=== PATIENT | male | born 1955 | race Caucasian/White ===

== ENCOUNTER → 2021-12-25 | Day surgery (SDC) | payer MEDICARE ==
[2021-12-24 09:00] VITALS: BMI 34.2
[~2021-12-25] MED LIST: ALPRAZolam 0.25 MG TAB PO PRN; ALPRAZolam 0.5 MG TAB PO PRN; ASPIRIN 325 MG TAB PO STA; ASPIRIN 81 MG PO SCH; ATORVASTATIN 80 MG TAB PO STA; HEPARIN SODIUM 1,000 UN/ML (10ML VL) ONE; HEPARIN SODIUM,PORCINE 10,000 UNIT in SODIUM CHLORIDE 0.9% 1,000 ML IRRIGATION PRN; HEPARIN SODIUM,PORCINE 2,500 UNIT in SODIUM CHLORIDE 0.9% 250 ML IRRIGATION PRN; IOPAMIDOL-370 125ML BTL INJ ONE; LIDOCAINE 1% INJ 10MG/ML (20 ML MDV) ONE; LIDOCAINE 1% INJ 10MG/ML (20 ML MDV) SQ ONE; LISINOPRIL-HCTZ 10-12.5 MG 1 EACH TAB PO SCH; MIDAZOLAM 2 MG/2 ML VIAL IV ONE; MONTELUKAST 10 MG TAB PO SCH; NITROGLYCERIN SL TABS 0.4 MG TAB SUBLINGUAL PRN; RX INFO: IV CONTRAST WAS GIVEN 1 EACH MISC MISCELLANE PRN; SODIUM CHLORIDE 0.9% 1,000 ML IV SCH; SODIUM CHLORIDE 0.9% 1,000 ML in EMPTY BAG 1 BAG IV SCH; TAMSULOSIN 0.4 MG CAP.ER.24H PO SCH; VERAPAMIL 2.5 MG/ML 2 ML AMP ONE; VERAPAMIL SYRINGE (5 MG/10 ML) INTRAARTER ONE; fentaNYL (PF) 50 MCG/ML 2 ML AMP IV ONE; fentaNYL (PF) 50 MCG/ML 2 ML AMP ONE
[2021-12-25 06:40] VITALS: RESP 16; TEMP 98.2
[2021-12-25 06:46] LABS: African American GFR (CKD) >90 (>60 ml/min/1.73 sqM); Anion Gap 9 mmol/L; Blood Urea Nitrogen 20 mg/dL (9-20); Calcium 9.3 mg/dL (8.4-10.2); Carbon Dioxide 25 mmol/L (22-30); Chloride 105 mmol/L (98-107); Glucose 113 mg/dL (74-99); Non-African American GFR(CKD) 86 (>60 ml/min/1.73 sqM); Potassium 4.2 mmol/L (3.5-5.1); Sodium 139 mmol/L (137-145)
[2021-12-25 06:50] LABS: Basophils # (A) 0.1 k/uL (0-0.2); Basophils % (A) 1 %; Eosinophils # (A) 0.2 k/uL (0-0.7); Eosinophils % (A) 2 %; HCT 45.5 % (39.0-53.0); HGB 14.9 gm/dL (13.0-17.5); Lymphocytes # (A) 1.8 k/uL (1.0-4.8); Lymphocytes % (A) 24 %; MCHC 32.9 g/dL (31.0-37.0); MCV 88.3 fL (80.0-100.0); Mean Platelet Volume 6.9; Monocytes # (A) 0.5 k/uL (0-1.0); Monocytes % (A) 7 %; Neutrophils # (A) 4.6 k/uL (1.3-7.7); Neutrophils % (A) 63 %; Platelet Count 206 k/uL (150-450); RBC 5.15 m/uL (4.30-5.90); RDW 13.3 % (11.5-15.5); WBC 7.4 k/uL (3.8-10.6)
--- NOTE | 2021-12-25 08:02 | P.CARDCATH ---
Date of Procedure: 12/25/21 Description of Procedure: Cardiac Catheterization: The patient is a 66-year-old male with known history of hypertension, permanent pacemaker implantation was been complaining of episodes of chest discomfort, he had an abnormal MPI. Recommendations were made regarding cardiac catheterization, the risks and the complications were discussed with the patient who is in full understanding and agreement. Procedure Description: Patient was brought to confectionery laboratory manager in fasting semi-sedated state after receiving Fentanyl and Benadryl achieiving moderate conscious sedated state. Using Xylocaine Anesthesia and Seldinger technique, a 6-Malaysian sheath was introduced in the right radial artery . Subsequently, selective coronary angiography performed using a 5-Malaysian 3.5 bend Anderson catheter. Multiple views of the coronary artery including hemiaxial views were obtained. The 5-Malaysian pigatail catheter was used to cross the aortic valve and LVEDP was calculated. Following that, catheter and sheath were removed. Hemostasis was obtained with deployment of TR band . There was no immediate complication. Patient was returned to room in stable condition. Of note, the patient received a total of 5000 units of intravenous heparin as well as intra-arterial verapamil. There was no immediate complications. Findings: Left main: This is a large size vessel, trifurcating to LAD, ramus intermedius and left circumflex, left main has no high-grade stenosis LAD: This is a large size vessel, giving rise to a large diagonal branch in the mid segment, the LAD and its branches have no evidence of high-grade stenosis Left circumflex: This is a dominant vessel, giving rise to a large obtuse marginal branch and the mid segment and bifurcating distally into PDA and PLV. The left circumflex has no high-grade stenosis RCA: This is a small nondominant vessel that has no evidence of high-grade stenosis Ramus intermedius: This is a large size vessel reaching to the apical lateral wall, the ramus intermedius has no evidence of high-grade stenosis [Left] Ventriculogram: Was not performed Hemodynamics: There was no gradient across the aortic valve, LVEDP 15-20 mmHg Conclusion: 1. Normal coronary arteries with no evidence of obstructive disease 2. Left dominance Recommendations: I have recommended to continue present medical therapy, the findings and recommendations were discussed with the patient and his family and they are in full understanding and agreement. Duration of sedation is 18 minutes.
[2021-12-25 10:15] VITALS: BP 133/70; PULSE 58
== END | disposition home or self-care (01) ==
LOC: CATHCVL 05:57
PROVIDERS: ATTEND Internal Medicine Interventional Cardiology
DX: R94.39 Abnormal result of other cardiovascular function study (principal); R55 Syncope and collapse; R07.89 Other chest pain; I10 Essential (primary) hypertension; M19.90 Unspecified osteoarthritis, unspecified site; Z95.0 Presence of cardiac pacemaker; Z20.822 Contact with and (suspected) exposure to COVID-19; Z87.891 Personal history of nicotine dependence; Z79.82 Long term (current) use of aspirin; Z79.899 Other long term (current) drug therapy; Z98.1 Arthrodesis status
CPT/HCPCS: 93458; 80048; 85025; 87635; C1894; C1769; J2250; J2001; J3010; J1644; Q9967

== ENCOUNTER 2023-01-18 08:04 | Observation (INO) | payer MEDICARE ==
[2023-01-18] MEDS ORDERED: ASPIRIN 81 MG PO STA (08:37)
[2023-01-18] MEDS ORDERED: NITROGLYCERIN SL TABS 0.4 MG TAB SUBLINGUAL PRN (08:37)
--- NOTE | 2023-01-18 08:37 | ED ---
General Adult HPI - General Chief complaint: Chest Pain Stated complaint: Chest discomfort with near syncope Time Seen by Provider: 01/18/23 08:07 Source: patient, EMS, RN notes reviewed, old records reviewed (Review of records from [facility]) Mode of arrival: EMS Limitations: no limitations - History of Present Illness Initial comments: Patient is a pleasant 67-year-old male presenting to the emergency Department as a transfer from [facility]. Patient has seen Dr. Ramos with cardiology here previously. Patient does have pacemaker. Patient states since last night he has had several episodes, close to 5 or 6 of near-syncope. Patient does get associated chest discomfort that has been mild and described as an ache. Patient also gets nauseated with these episodes. No history of similar symptoms previously. No dyspnea or diaphoresis. Patient currently symptom-free. - Related Data Home Medications Medication Instructions Recorded Confirmed Fluticasone Nasal [place] [Flonase 1 spray EA NOSTRIL DAILY PRN 10/20/21 12/24/21 Nasal [place]] Meloxicam [Mobic] 7.5 - 15 mg PO DAILY PRN 10/20/21 12/24/21 Montelukast [Singulair] 10 mg PO HS 10/20/21 12/25/21 Tamsulosin [Flomax] 0.4 mg PO HS 10/20/21 12/25/21 Aspirin 81 mg PO DAILY 12/24/21 12/25/21 Previous Rx's Medication Instructions Recorded Lisinopril-Hctz 10-12.5 mg 1 tab PO HS #30 tab 10/23/21 [Zestoretic 10-12.5] Allergies Allergy/AdvReac Type Severity Reaction Status Date / Time No Known Allergies Allergy Verified 01/18/23 08:14 Review of Systems ROS Statement: Those systems with pertinent positive or pertinent negative responses have been documented in the HPI. ROS Other: All systems not noted in ROS Statement are negative. Constitutional: Denies: fever Eyes: Denies: eye pain ENT: Denies: ear pain Cardiovascular: Reports: as per HPI, chest pain Gastrointestinal: Reports: nausea Genitourinary: Denies: dysuria Musculoskeletal: Denies: arthralgia Skin: Denies: rash Neurological: Denies: weakness Past Medical History Past Medical History: Hypertension, Osteoarthritis (OA), Sleep Apnea/CPAP/BIPAP Additional Past Medical History / Comment(s): C PAP MACHINE,SEASONAL ALLERGIES History of Any Multi-Drug Resistant Organisms: None Reported Past Surgical History: Back Surgery, Orthopedic Surgery, Pacemaker Additional Past Surgical History / Comment(s): KNee, shoulder replacemnt, neck surgery, PACEMAKER "PASSED OUT"- HAD A PACEMAKER RECENTLY PUT IN Past Anesthesia/Blood Transfusion Reactions: No Reported Reaction Type of Cardiac Device: Permanent Pacemaker Device Placement Date:: OCT 2021 Past Psychological History: No Psychological Hx Reported Smoking Status: Never smoker Past Alcohol Use History: None Reported Past Drug Use History: None Reported - Past Family History Mother Family Medical History: Myocardial Infarction ([place]) Additional Family Medical History / Comment(s): Minor heart attack "a few years ago" General Exam Limitations: no limitations General appearance: alert, in no apparent distress Head exam: Present: normocephalic Eye exam: Present: normal appearance Neck exam: Present: normal inspection Respiratory exam: Present: normal lung sounds bilaterally. Absent: chest wall tenderness Cardiovascular Exam: Present: regular rate, normal rhythm Expanded Peripheral pulses: 2+: Radial (R), Radial (L), Posterior Tibialis (R), Posterior Tibialis (L) GI/Abdominal exam: Present: soft. Absent: tenderness Extremities exam: Present: normal inspection. Absent: pedal edema, calf tenderness Neurological exam: Present: alert, oriented X3, CN II-XII intact. Absent: motor sensory deficit Expanded Neurological exam: Present: protecting the airway Speech: Present: fluid speech Cranial nerves: EOM's Intact: Normal Motor strength exam: RUE: 5, LUE: 5, RLE: 5, LLE: 5 Eye Response: (4) open spontaneously Motor Response: (6) obeys commands Verbal Response: (5) oriented Psychiatric exam: Present: normal affect, normal mood Skin exam: Present: normal color Course Vital Signs 01/18/23 01/18/23 08:09 08:58 Temperature 98.2 F 97.9 F Pulse Rate 77 71 Respiratory 16 18 Rate Blood Pressure 147/85 119/80 O2 Sat by Pulse 95 99 Oximetry EKG Findings - EKG Results: EKG: interpreted by ERMD, sinus rhythm, normal axis, normal QRS, normal ST/T Medical Decision Making - Medical Decision Making Was pt. sent in by a medical professional or institution (, PA, SPACE SYSTEMS OPERATIONS MANAGER, urgent care, hospital, or snf...) When possible be specific @ -Patient was sent from [facility] Did you speak to anyone other than the patient for history (EMS, parent, family, police, friend...)? What history was obtained from this source @ -No Did you review nursing and triage notes (agree or disagree)? Why? @ -I reviewed and agree with nursing and triage notes Were old charts reviewed (outside hosp., previous admission, EMS record, old EKG, old radiological studies, urgent care reports/EKG's, snf records)? Report findings @ -I reviewed chart from other facility Differential Diagnosis (chest pain, altered mental status, abdominal pain women, abdominal pain men, vaginal bleeding, weakness, fever, dyspnea, syncope, headache, dizziness, GI bleed, back pain, seizure, CVA, palpatations, mental health)? @ -Differential Chest Pain: Stable Angina, Unstable Angina, STEMI, NSTEMI Aortic Dissection, Pneumothorax, Musculoskeletal, Esophageal Spasm GERD, Cholecystitis, Pancreatitis, Zoster, this is not meant to be an all-inclusive list. Differential Syncope: Valvular disease, hypertrophic cardiomyopathy, pulmonary embolism, tamponade, tachycardia, bradycardia, RI, hypovolemia, hemorrhage, dissection, anemia, intracranial hemorrhage, seizure, hypoglycemia, carbon monoxide poisoning, this is not meant to be an all-inclusive list. EKG interpreted by me (3pts min.). @ -As above X-rays interpreted by me (1pt min.). @ -Chest x-ray does not reveal acute process CT interpreted by me (1pt min.). @ -None done U/S interpreted by me (1pt. min.). @ -None done What testing was considered but not performed or refused? (CT, X-rays, U/S, labs)? Why? @ -None What meds were considered but not given or refused? Why? @ -None Did you discuss the management of the patient with other professionals (professionals i.e. , PA, SPACE SYSTEMS OPERATIONS MANAGER, lab, RT, psych nurse, criminal justice social worker, water technician, teacher, president and chief operating officer, dependency case manager)? Give summary @ -Case was discussed with Dr. Germain, who will admit covering hospital call Was smoking cessation discussed for >3mins.? @ -No Was critical care preformed (if so, how long)? @ -No Were there social determinants of health that impacted care today? How? (Homelessness, low income, unemployed, alcoholism, drug addiction, transport ation, low edu. Level, literacy, decrease access to med. care, group home, rehab)? @ -No Was there de-escalation of care discussed even if they declined (Discuss DNR or withdrawal of care, Hospice)? DNR status @ -No What co-morbidities impacted this encounter? (DM, HTN, Smoking, COPD, CAD, Cancer, CVA, ARF, Chemo, Hep., AIDS, mental health diagnosis, sleep apnea, morbid obesity)? @ -None Was patient admitted / discharged? Hospital course, mention meds given and route, prescriptions, significant lab abnormalities, going to OR and other pertinent info. @ -Patient is updated. Patient be admitted with cardiac consult. Chest x-ray does not appear to be ordered previously and this is been added. Undiagnosed new problem with uncertain prognosis? @ -No Drug Therapy requiring intensive monitoring for toxicity (Heparin, Nitro, Insulin, Cardizem)? @ -No Were any procedures done? @ -No Diagnosis/symptom? @ -near syncope, chest pain Acute, or Chronic, or Acute on Chronic? @ -Acute, acute Uncomplicated (without systemic symptoms) or Complicated (systemic symptoms)? @ -default Side effects of treatment? @ -No Exacerbation, Progression, or Severe Exacerbation? @ -No Poses a threat to life or bodily function? How? (Chest pain, [place], RI, pneumonia, PE, COPD, DKA, ARF, appy, cholecystitis, CVA, Diverticulitis, Homicidal, Suicidal, threat to staff... and all critical care pts) @ -No Disposition Clinical Impression: Chest pain, Near syncope Disposition: ADMITTED IP TO THIS HOSP Is patient prescribed a controlled substance at d/c from ED?: No Time of Disposition: 08:41
--- NOTE | 2023-01-18 09:01 | XR ---
EXAMINATION TYPE: XR chest 2V DATE OF EXAM: 01/18/2023 COMPARISON: 10/22/2021 INDICATION: Chest pain TECHNIQUE: Frontal and lateral views of the chest are obtained. FINDINGS: The heart size is normal. The pulmonary vasculature is normal. The lungs are clear. IMPRESSION: 1. No acute pulmonary process.
[2023-01-18 09:04] VITALS: TEMP 98.2
--- NOTE | 2023-01-18 13:47 | P.CRDCN ---
History of Present Illness Consult date: 01/18/23 Consult reason: sycope History of present illness: This is [place] R[place] NP, I'm dictating on behalf of Dr. Velez's H&P and A&P The patient was interviewed and examined. HPI: Patient is a pleasant 67-year-old male who presented to the hospital with complaints of syncope. Patient states he was sitting in his recliner at home for about an hour, and started having a fuzzy use, tingling feeling in his head. He states that he fell acute was going to pass out. He states that he got up, went and took his meds, and when he went to sit back down the chair, he states the room started to accumulate fuzzy and closing. He states that he had m ultiple episodes of this yesterday evening. His states that when these episodes would happen, he would close his eyes, and then his eyes would open up back up before he was fully conscious. Patient reports that he had some nausea, as well as a clammy feeling during these episodes. Patient has a significant past medical history that includes hypertension, sleep apnea, and sick sinus syndrome. Patient has a pacemaker. ROS: [No fever, chills, or rigors] [no cough, phlegm, or expectoration] [no nausea, vomiting, or diarrhea] [no hematuria, dysuria] [no musculoskelatal complaints] [no strokes or seizures] [no skin lesions] EXAMINATION: GENERAL: Well-appearing, well-nourished and in no acute distress. NECK: Supple without JVD or thyromegaly. LUNGS: Breath sounds clear to auscultation bilaterally. Respiration equal and unlabored. No wheezes, rales or rhonchi. HEART: Regular rate and rhythm without murmurs, rubs or gallops. S1 and S2 heard. EXTREMITIES: Normal range of motion, no edema. No clubbing or cyanosis. Peripheral pulses intact and strong. REVIEW OF LABS, ECG & MEDICAL DATA: LABS: Troponin-less than 0.012 EKG: Normal sinus rhythm, heart rate 73 IMAGING: Chest x-ray dated 01/18/2023 demonstrates no acute pulmonary process. VITALS: Temp 98.2, pulse 77, respirations 16, blood pressure 147/85, O2 saturation 95% on room air IMPRESSION: 1. Syncope/near syncope 2. History of sick sinus syndrome, pacemaker placed due to this. 3. Hypertension PLAN: Interrogate pacemaker If pacemaker does not demonstrate any significant abnormalities during these episodes, we'll consider stress test. Further recommendations based on patient's clinical course. Thank you for the consult and allowing us to participate in the care of this patient. Past Medical History Past Medical History: Hypertension, Osteoarthritis (OA), Sleep Apnea/CPAP/BIPAP Additional Past Medical History / Comment(s): C PAP MACHINE,SEASONAL ALLERGIES History of Any Multi-Drug Resistant Organisms: None Reported Past Surgical History: Back Surgery, Orthopedic Surgery, Pacemaker Additional Past Surgical History / Comment(s): KNee, shoulder replacemnt, neck surgery, PACEMAKER "PASSED OUT"- HAD A PACEMAKER RECENTLY PUT IN Past Anesthesia/Blood Transfusion Reactions: No Reported Reaction Type of Cardiac Device: Permanent Pacemaker Device Placement Date:: OCT 2021 Past Psychological History: No Psychological Hx Reported Smoking Status: Never smoker Past Alcohol Use History: None Reported Past Drug Use History: None Reported - Past Family History Mother Family Medical History: Myocardial Infarction ([place]) Additional Family Medical History / Comment(s): Minor heart attack "a few years ago" Medications and Allergies Home Medications Medication Instructions Recorded Confirmed Type Montelukast [Singulair] 10 mg PO HS 10/20/21 01/18/23 History Tamsulosin [Flomax] 0.4 mg PO HS 10/20/21 01/18/23 History ALPRAZolam [Xanax] 0.25 mg PO TID PRN 01/18/23 01/18/23 History Albuterol Inhaler [Ventolin Hfa 2 puff INHALATION RT-Q6H PRN 01/18/23 01/18/23 History Inhaler] Azelastine HCl [Astelin Nasal 2 spray EA NOSTRIL BID PRN 01/18/23 01/18/23 History [place]] Lisinopril-Hctz 10-12.5 mg 1 tab PO DAILY 01/18/23 01/18/23 History [Zestoretic 10-12.5] Metoprolol Succinate (ER) [Toprol 50 mg PO DAILY 01/18/23 01/18/23 History Xl] Omeprazole [PriLOSEC] 20 mg PO HS 01/18/23 01/18/23 History allopurinoL [Zyloprim] 300 mg PO DAILY 01/18/23 01/18/23 History Allergies Allergy/AdvReac Type Severity Reaction Status Date / Time No Known Allergies Allergy Verified 01/18/23 12:31 Physical Exam Vitals: Vital Signs Temp Pulse Resp BP Pulse Ox 01/18/23 13:38 67 18 139/78 97 01/18/23 08:09 98.2 F 77 16 147/85 95 Intake and Output 01/17/23 01/18/23 01/18/23 22:59 06:59 14:59 Other: Weight 108.862 kg Results Cardiac Enzymes 01/18/23 Range/Units 10:07 Troponin I <0.012 (0.000-0.034) ng/mL Current Medications Generic Name Dose Route Start Last Admin Trade Name Freq PRN Reason Stop Dose Admin Aspirin 325 mg 01/19/23 09:00 Aspirin 325 Mg Tab PO DAILY LORNE Nitroglycerin 0.4 mg 01/18/23 08:37 Nitroglycerin Sl Tabs 0.4 Mg Tab SUBLINGUAL Q5M PRN Chest Pain Sodium Chloride 10 ml 01/18/23 09:00 01/18/23 09:46 Sodium Chloride 0.9% Flush 10 Ml Syringe IV 10 ml BID LORNE Administration Intake and Output 01/17/23 01/18/23 01/18/23 22:59 06:59 14:59 Other: Weight 108.862 kg Patient Weight 01/19/23 06:59 Weight 108.862 kg
[2023-01-18] MEDS ORDERED: ALPRAZolam 0.25 MG TAB PO PRN (14:49)
--- NOTE | 2023-01-18 17:34 | CA ---
Transthoracic Echo Report Name: Mynor Snowden Age: 67 Gender: M : 1955 Exam Date: 01/18/2023 13:26 Exam Location: [facility] Ht (in): 70 Wt (lb): 240 Ordering Physician: Cj Morse DO Attending/Referring Phys: Violin Repairer Melva Vera RDCS Procedure CPT: Indications: cp w near syncope Cardiac Hx: Technical Quality: Fair Contrast 1: Total Dose (mL): Contrast 2: Total Dose (mL): MEASUREMENTS (Male / Female) Normal Values 2D ECHO LV Diastolic Diameter PLAX 4.2 cm 4.2 - 5.9 / 3.9 - 5.3 cm LV Systolic Diameter PLAX 2.8 cm IVS Diastolic Thickness 1.1 cm 0.6 - 1.0 / 0.6 - 0.9 cm LVPW Diastolic Thickness 1.1 cm 0.6 - 1.0 / 0.6 - 0.9 cm LV Relative Wall Thickness 0.5 RV Internal Dim ED PLAX 3.5 cm LA Volume 68.1 cm??? 18 - 58 / 22 - 52 cm??? M-MODE Aortic Root Diameter MM 3.5 cm LA Systolic Diameter MM 3.7 cm LA Ao Ratio MM 1.1 AV Cusp Separation MM 2.4 cm DOPPLER AV Peak Velocity 138.6 cm/s AV Peak Gradient 7.7 mmHg AV Mean Velocity 104.9 cm/s AV Mean Gradient 4.7 mmHg AV Velocity Time Integral 33.6 cm LVOT Peak Velocity 108.4 cm/s LVOT Peak Gradient 4.7 mmHg MV Area PHT 3.4 cm??? Mitral E Point Velocity 99.8 cm/s Mitral A Point Velocity 82.5 cm/s Mitral E to A Ratio 1.2 MV Deceleration Time 221.8 ms MV E' Velocity 7.4 cm/s Mitral E to MV E' Ratio 13.4 TR Peak Velocity 256.7 cm/s TR Peak Gradient 26.4 mmHg Right Ventricular Systolic Press 30.8 mmHg FINDINGS Left Ventricle Normal Left ventricular size, wall thickness, systolic function with no obvious regional wall motion abnormalities. Normal Left ventricular diastolic filling pattern. Left ventricular ejection fraction is estimated at 55-60 %. Right Ventricle Mild right ventricular dilatation. Right ventricular systolic pressure within normal limits. Right Atrium Normal right atrial size. Left Atrium Mildly increased left atrial volume. Mitral Valve Structurally normal mitral valve. No mitral stenosis, regurgitation or prolapse. Aortic Valve Trileaflet aortic valve. No aortic valve stenosis or regurgitation. Aortic valve sclerosis. Tricuspid Valve Structurally normal tricuspid valve. Mild tricuspid regurgitation. Pulmonic Valve Structurally normal pulmonic valve. Pericardium No pericardial effusion. Aorta Normal size aortic root and proximal ascending aorta. CONCLUSIONS Normal LV systolic function Previewed by: Dr. Joseph Velez MD (Electronically Signed) Final Date: 18 Jan 2023 17:33
--- NOTE | 2023-01-18 18:02 | P.HPIM ---
History of Present Illness H&P Date: 01/18/23 Patient is a 67-year-old male with PMH of hypertension, BPH, history of pacemaker placement for sinus arrest presents the ED for near syncopal episode. Patient reports symptoms that are been ongoing for the past month. The usually occur 1-2 times daily. Symptoms include lightheadedness and "fuzzy feeling" which can last about 20 seconds. He can have these episodes whether he is sitting, laying down or standing up. His is witnessed that the patient has a blank stare in his face and fails to respond to questions. He denies any episodes of shaking, tongue biting or bladder and bowel incontinence. His symptoms have been progressively getting worse which prompted him to come to the ED. He currently reports lightheadedness while walking to the washroom. He denies any headache, lower extremity edema, nausea or vomiting, fever chills, cough, chest pain, shortness breath, palpitations, changes in urination or bowel habits. No changes in appetite or weight. He denies any dizziness, numbness/weakness/tingling of the 70s. No history of OR or CVA. In the ED, his vital signs were stable. His troponin was less than 0.0122 with EKG showing normal sinus rhythm. Chest x-ray is negative for acute changes. Patient submitted for syncopal episodes and cardiology consultation. Pertinent positives and negatives as discussed in HPI, a complete review of systems was performed and all other systems are negative. General: non toxic, no distress, appears at stated age Derm: warm, dry Head: atraumatic, normocephalic, symmetric Eyes: EOMI, no lid lag, anicteric sclera Cardiovascular: S1S2 reg, no murmur Lungs: CTA bilateral, no rhonchi, no rales , no accessory muscle use Ext: no gross muscle atrophy, no edema, no contractures Neuro: no focal neuro deficits Psych: Alert, oriented, appropriate affect Recurrent syncopal episodes with history of sinus arrest status post pacemaker Chronic conditions: Hypertension, BPH, seasonal ALLERGIES, gout Based on my assessment of this patient, this patient meets a high complexity level of care. Patient has an acute diagnosis of recurrent syncopal episodes with history of sinus arrest status post pacemaker that poses a threat to life or bodily function. Troponins have been trended and ACS has been ruled out. Cardiology has been consulted and recommended interrogating pacemaker. Patient will be placed on telemetry monitoring. Possible stress test if pacemaker functioning properly. Patient names his decision maker if he can't make decisions for himself. Patient elected to be full code. Heparin SQ for DVT prophylaxis. Hypertension: Lisinopril/HCTZ 1012 0.5 mg by mouth daily, metoprolol 50 mg by mouth daily. BPH: Flomax 0.4 mg by mouth at bedtime. Seasonal ALLERGIES: Singulair 10 mg by mouth at bedtime. I have reviewed the following j2ee consultant notes: Cardiology note 01/18, Interrogate pacemaker, stress test if benign. I have reviewed the results of the following tests: His troponin was less than 0.0122 I have ordered the following tests: Echocardiogram. I have discussed the care of this patient with the following independent historian: None. I have independently interpreted the following test below: EKG showing normal sinus rhythm. Chest x-ray is negative for acute changes. I have discussed the management of this patient with the following physician: None. Past Medical History Past Medical History: Hypertension, Osteoarthritis (OA), Sleep Apnea/CPAP/BIPAP Additional Past Medical History / Comment(s): C PAP MACHINE,SEASONAL ALLERGIES History of Any Multi-Drug Resistant Organisms: None Reported Past Surgical History: Back Surgery, Orthopedic Surgery, Pacemaker Additional Past Surgical History / Comment(s): KNee, shoulder replacemnt, neck surgery, PACEMAKER "PASSED OUT"- HAD A PACEMAKER RECENTLY PUT IN Past Anesthesia/Blood Transfusion Reactions: No Reported Reaction Type of Cardiac Device: Permanent Pacemaker Device Placement Date:: OCT 2021 Past Psychological History: No Psychological Hx Reported Smoking Status: Never smoker Past Alcohol Use History: None Reported Past Drug Use History: None Reported - Past Family History Mother Family Medical History: Myocardial Infarction (OR) Additional Family Medical History / Comment(s): Minor heart attack "a few years ago" Medications and Allergies Home Medications Medication Instructions Recorded Confirmed Type Montelukast [Singulair] 10 mg PO HS 10/20/21 01/18/23 History Tamsulosin [Flomax] 0.4 mg PO HS 10/20/21 01/18/23 History ALPRAZolam [Xanax] 0.25 mg PO TID PRN 01/18/23 01/18/23 History Albuterol Inhaler [Ventolin Hfa 2 puff INHALATION RT-Q6H PRN 01/18/23 01/18/23 History Inhaler] Azelastine HCl [Astelin Nasal 2 spray EA NOSTRIL BID PRN 01/18/23 01/18/23 History Ventress] Lisinopril-Hctz 10-12.5 mg 1 tab PO DAILY 01/18/23 01/18/23 History [Zestoretic 10-12.5] Metoprolol Succinate (ER) [Toprol 50 mg PO DAILY 01/18/23 01/18/23 History Xl] Omeprazole [PriLOSEC] 20 mg PO HS 01/18/23 01/18/23 History allopurinoL [Zyloprim] 300 mg PO DAILY 01/18/23 01/18/23 History Allergies Allergy/AdvReac Type Severity Reaction Status Date / Time No Known Allergies Allergy Verified 01/18/23 12:31 Physical Exam Vitals: Vital Signs Temp Pulse Resp BP Pulse Ox 01/18/23 13:38 67 18 139/78 97 01/18/23 08:09 98.2 F 77 16 147/85 95 Intake and Output 01/18/23 01/18/23 01/18/23 06:59 14:59 22:59 Other: Weight 108.862 kg
[2023-01-18] MEDS ORDERED: MONTELUKAST 10 MG TAB PO SCH (21:00)
[2023-01-18] MEDS ORDERED: PANTOPRAZOLE 40 MG TABLET PO SCH (21:00)
[2023-01-18] MEDS ORDERED: TAMSULOSIN 0.4 MG CAP.ER.24H PO SCH (21:00)
[2023-01-18] MEDS: HEPARIN SODIUM,PORCINE/PF 5,000 UNIT/0.5 ML SYRINGE SQ SCH (22:17)
[2023-01-19] MEDS ORDERED: ASPIRIN 325 MG TAB PO SCH (09:00)
[2023-01-19] MEDS ORDERED: allopurinoL 300 MG TAB PO SCH (09:00)
[2023-01-19] MEDS ORDERED: METOPROLOL SUCCINATE (ER) 50 MG TAB.ER.24H PO SCH (09:00)
[2023-01-19] MEDS ORDERED: ASPIRIN 81 MG PO SCH (09:00)
[2023-01-19] MEDS ORDERED: LISINOPRIL-HCTZ 10-12.5 MG 1 EACH TAB PO SCH (09:00)
[2023-01-19] MEDS: HEPARIN SODIUM,PORCINE/PF 5,000 UNIT/0.5 ML SYRINGE SQ SCH (09:23)
[2023-01-19 09:29] VITALS: RESP 16
[2023-01-19 11:30] VITALS: BP 123/77; PULSE 70
[2023-01-19 13:00] LABS: Chol/HDL Ratio 3.92 Ratio; LDL Cholesterol,Calculated 83.5 mg/dL (0.0-131.0)
--- NOTE | 2023-01-19 13:17 | P.PN ---
Subjective Progress Note Date: 01/19/23 This is El Rocha NP, I'm dictating on behalf of Dr. Velez's H&P and A&P. Patient was interviewed and examined. Patient is a pleasant 67-year-old male who presented to the hospital with near- syncope and chest pain. She reports that he is feeling good today. He had one minor episode of near-syncope early this morning, which she states was just a fleeting sensation and nothing significant. Review of his chart does demonstrate a heart rate of 57 at that time. Patient had an echocardiogram comp leted yesterday which does show mild RVH with a mild left atrial dilatation. Patient's blood pressure is better today. Pacemaker interrogation did not demonstrate any obvious abnormalities. GENERAL: Well-appearing, well-nourished and in no acute distress. NECK: Supple without JVD or thyromegaly. LUNGS: Breath sounds clear to auscultation bilaterally. Respiration equal and unlabored. No wheezes, rales or rhonchi. HEART: Regular rate and rhythm without murmurs, rubs or gallops. S1 and S2 heard. EXTREMITIES: Normal range of motion, no edema. No clubbing or cyanosis. Peripheral pulses intact and strong. VITALS: Heart rate 71, respirations 20, blood pressure 132/81, O2 saturation 95% on room air TELEMETRY: Normal sinus rhythm LABS: Troponin 2-less than 0.012, triglycerides 1:15, cholesterol 143, LDL 83.5, HDL 36.5 IMPRESSION: 1. Syncope/near syncope 2. History of sick sinus syndrome, pacemaker placed due to this. 3. Hypertension 4. Likely atrial tachycardia PLAN: Patient may be discharged today from a cardiology standpoint. Patient needs an EP study, with possible ablation for atrial tachycardia. Patient should follow-up in the office to schedule the EP study. Re-interrogate pacemaker, looking further back to see if there have been any suspicious episodes. Objective - Vital Signs Vital signs: Vital Signs Temp 98.2 F 01/18/23 18:48 Pulse 70 01/19/23 11:29 Resp 16 01/19/23 11:29 BP 123/77 01/19/23 11:29 Pulse Ox 95 01/19/23 11:29 FiO2 21 01/19/23 10:15 Intake & Output 01/18/23 01/19/23 01/19/23 18:59 06:59 18:59 Intake Total 476 Balance 476 Weight 108.862 kg 108.862 kg Intake: Oral 476 - Labs Labs: Abnormal Lab Results - Last 24 Hours (Table) 01/19/23 Range/Units 05:30 HDL Cholesterol 36.50 L (40.00-60.00) mg/dL
--- NOTE | 2023-01-19 14:11 | P.DS ---
Providers Date of admission: 01/18/23 08:37 Expected date of discharge: 01/19/23 Attending physician: Daniel Germain MD Consults: 01/18/23 08:37 Consult Physician Urgent Consulting Provider: Steffen Kohli Consult Reason/Comments: cp w near syncope Do you want consulting provider notified?: Yes Primary care physician: [facility] Course: Patient is a 67-year-old male with PMH of hypertension, BPH, history of pacemaker placement for sinus arrest presents the ED for near syncopal episode. Patient reports symptoms that are been ongoing for the past month. The usually occur 1-2 times daily. Symptoms include lightheadedness and "fuzzy feeling" which can last about 20 seconds. He can have these episodes whether he is sitting, laying down or standing up. His is witnessed that the patient has a blank stare in his face and fails to respond to questions. He denies any episodes of shaking, tongue biting or bladder and bowel incontinence. His s ymptoms have been progressively getting worse which prompted him to come to the ED. He currently reports lightheadedness while walking to the washroom. He denies any headache, lower extremity edema, nausea or vomiting, fever chills, cough, chest pain, shortness breath, palpitations, changes in urination or bowel habits. No changes in appetite or weight. He denies any dizziness, numbness/weakness/tingling of the 70s. No history of DE or CVA. In the ED, his vital signs were stable. His troponin was less than 0.0122 with EKG showing normal sinus rhythm. Chest x-ray is negative for acute changes. Patient submitted for syncopal episodes and cardiology consultation. Troponins were trended and acute coronary syndrome was ruled out. Echocardiogram was completed which showed mild RVH and mild left atrial dilatation. Pacemaker was interrogated and adjustments were made by cardiology. Cardiology cleared the patient for discharge on 01/19. Patient was seen and examined. No acute events overnight. Patient reports no dizziness. He denies any chest pain, shortness breath or palpitations. No nausea or vomiting. No fever or chills. Pertinent studies include chest x-ray, echocardiogram. General: non toxic, no distress, appears at stated age Derm: warm, dry Head: atraumatic, normocephalic, symmetric Eyes: EOMI, no lid lag, anicteric sclera Cardiovascular: S1S2 reg, no murmur Lungs: CTA bilateral, no rhonchi, no rales , no accessory muscle use Ext: no gross muscle atrophy, no edema, no contractures Neuro: no focal neuro deficits Psych: Alert, oriented, appropriate affect Discharge diagnosis: Recurrent syncopal episodes with history of sinus arrest status post pacemaker Chronic conditions: Hypertension, BPH, seasonal ALLERGIES, gout This complex discharge took 35 minutes to complete. Patient Condition at Discharge: Stable Plan - Discharge Summary Discharge Rx Participant: No New Discharge Prescriptions: New Aspirin 81 mg PO DAILY #30 tab Continue Tamsulosin [Flomax] 0.4 mg PO HS Montelukast [Singulair] 10 mg PO HS Metoprolol Succinate (ER) [Toprol XL] 50 mg PO DAILY Albuterol Inhaler [Ventolin Hfa Inhaler] 2 puff INHALATION RT-Q6H PRN PRN Reason: Shortness Of Breath ALPRAZolam [Xanax] 0.25 mg PO TID PRN PRN Reason: Anxiety Lisinopril-Hctz 10-12.5 mg [Zestoretic 10-12.5] 1 tab PO DAILY Azelastine HCl [Astelin Nasal Bernard] 2 spray EA NOSTRIL BID PRN PRN Reason: Allergy Symptoms allopurinoL [Zyloprim] 300 mg PO DAILY Omeprazole [PriLOSEC] 20 mg PO HS Discharge Medication List Montelukast [Singulair] 10 mg PO HS 10/20/21 [History] Tamsulosin [Flomax] 0.4 mg PO HS 10/20/21 [History] ALPRAZolam [Xanax] 0.25 mg PO TID PRN 01/18/23 [History] Albuterol Inhaler [Ventolin Hfa Inhaler] 2 puff INHALATION RT-Q6H PRN 01/18/23 [History] Azelastine HCl [Astelin Nasal Bernard] 2 spray EA NOSTRIL BID PRN 01/18/23 [History] Lisinopril-Hctz 10-12.5 mg [Zestoretic 10-12.5] 1 tab PO DAILY 01/18/23 [History] Metoprolol Succinate (ER) [Toprol XL] 50 mg PO DAILY 01/18/23 [History] Omeprazole [PriLOSEC] 20 mg PO HS 01/18/23 [History] allopurinoL [Zyloprim] 300 mg PO DAILY 01/18/23 [History] Aspirin 81 mg PO DAILY #30 tab 01/19/23 [Rx] Follow up Appointment(s)/Referral(s): Steffen Kohli MD [STAFF PHYSICIAN] - 1 Week Radha Solis MD [Primary Care Provider] - 1-2 days Activity/Diet/Wound Care/Special Instructions: Diet: Cardiac Follow-up with your PCP within 1-2 days of discharge. Follow-up with cardiology within 1 week of discharge. Come back to the ED for worsening chest pain, shortness of breath, palpitations or dizziness. Discharge Disposition: HOME SELF-CARE
== END 2023-01-19 14:58 | disposition home or self-care (01) ==
LOC: EC 08:04 → INTOOBSV 08:37 → 3SCARD 08:37 → UNDODISIN 01-19 14:58
PROVIDERS: ADMIT Student in an Organized Health Care Education/Training Program; ATTEND Student in an Organized Health Care Education/Training Program
DX: I47.1 Supraventricular tachycardia (principal)
CPT/HCPCS: 96372 ×2; 99285; 94760; 93005; 93306; 80061; 84484; 71046; G0378 ×2; J1644 ×2; 96374; 96376